=== PATIENT | female | born 1950 | race Caucasian/White ===

== ENCOUNTER 2019-11-21 18:00 | Inpatient (IN) ==
[2019-11-21] MEDS ORDERED: Naloxone 0.4 MG/ML INJ IVP PRN (22:25)
[2019-11-21] MEDS: Azithromycin 250 MG TABLET PO SCH (23:28)
[2019-11-22] MEDS: Ipratropium/Albuterol Neb 3 ML IH SCH ×6 (00:48→20:04)
[2019-11-22 01:04] LABS: Bilirubin,Urine Negative (Negative); Blood,Urine Trace (Negative); Clarity,Urine Clear (Clear); Color,Urine Yellow (Yellow); Glucose,Urine (UA) Normal (Normal); Ketones,Urine Negative (Negative); Leukocyte Esterase,Urine Negative (Negative); Nitrite,Urine Negative (Negative); Protein,Urine Trace mg/dL (Neg-Trace); Urobilinogen,Urine Normal (Normal)
[2019-11-22 01:07] LABS: Bacteria,Urine None Seen per hpf (None-Few); Hyaline Casts,Urine None Seen per lpf (None-Few); RBC,Urine 0-3 per hpf (0-3); Squamous Epithelial Cell,Urine Few per lpf (None-Few); WBC,Urine 0-3 per hpf (0-3)
[2019-11-22 01:14] LABS: Amphetamine Screen,Urine Negative ng/mL (Cutoff=1000); Barbiturate Screen,Urine Negative ng/mL (Cutoff=200); Benzodiazepines Screen,Urine Negative ng/mL (Cutoff=200); Cannabinoid Screen,Urine Negative ng/mL (Cutoff = 50); Cocaine Screen,Urine Negative ng/mL (Cutoff= 300); Opiate Screen,Urine Negative ng/mL (Cutoff=300); Phencyclidine Screen,Urine Negative ng/mL (Cutoff=25)
[2019-11-22 01:27] LABS: Albumin/Globulin Ratio 1.7 (1.1-2.2); Bilirubin,Total 0.4 mg/dL (0.3-1.0); Calcium 8.5 mg/dL (8.6-10.3); Chol/HDL Ratio 4.2 (0-4.9); Globulin 2.4 g/dL (2.4-3.5); Potassium 4.5 mEq/L (3.5-5.1); Total Protein 6.4 g/dL (6.4-8.9)
[2019-11-22 01:51] LABS: Thyroid Stimulating Hormone 0.403 mcIU/mL (0.340-5.600)
[2019-11-22] MEDS: *HR* Heparin 5,000 UNIT/ML VIAL SQ SCH ×2 (06:05→17:17)
[2019-11-22] MEDS: ARNUITY ELLIPTA AER SCH (07:25)
[2019-11-22 08:05] LABS: Estimated Average Glucose 117 mg/dl
[2019-11-22] MEDS ORDERED: Aspirin Enteric Coated 81 MG Tablet PO SCH (09:00)
[2019-11-22] MEDS ORDERED: Famotidine 20 MG TABLET PO SCH (09:00)
[2019-11-22] MEDS: predniSONE 20 MG TABLET PO SCH (10:52)
[2019-11-22] MEDS: Cholecalciferol (D-3) 1,000 UNIT (25MCG) TABLET PO SCH (10:52)
[2019-11-22] MEDS: *HR* HYDROcodone/Acet 5/325 mg TABLET PO PRN ×2 (12:16→20:46)
[2019-11-22] MEDS: Famotidine 20 MG TABLET PO SCH (15:32)
[2019-11-22] MEDS: Azithromycin 250 MG TABLET PO SCH (22:05)
[2019-11-22] MEDS: carvediloL 6.25 MG TABLET PO SCH (22:05)
[2019-11-23] MEDS: Ipratropium/Albuterol Neb 3 ML IH SCH ×7 (03:27→23:57)
[2019-11-23] MEDS: *HR* Heparin 5,000 UNIT/ML VIAL SQ SCH ×2 (05:44→17:04)
[2019-11-23 06:49] LABS: Hematocrit 34.8 % (35.3-44.9); Hemoglobin 11.9 g/dL (11.5-15.4); Mean Corpuscular HGB Conc 34.2 g/dL (31.6-35.5); Mean Corpuscular Hemoglobin 30.7 pg (28.0-33.3); Mean Corpuscular Volume 89.7 fL (83.0-100.0); Mean Platelet Volume 11.4 fL (9.4-12.4); Platelet Count 207 K/mcL (140-400); Red Blood Count 3.88 M/mcL (3.82-4.97); Red Cell Distribution Width 12.8 % (11.5-14.5); White Blood Count 5.8 K/mcL (4.3-11.1)
[2019-11-23 07:08] LABS: Calcium 8.1 mg/dL (8.6-10.3); Potassium 4.2 mEq/L (3.5-5.1)
[2019-11-23] MEDS: ARNUITY ELLIPTA AER SCH (07:49)
[2019-11-23] MEDS: carvediloL 6.25 MG TABLET PO SCH ×2 (08:52→17:04)
[2019-11-23] MEDS: Lisinopril 20 MG TABLET PO SCH (08:52)
[2019-11-23] MEDS: predniSONE 20 MG TABLET PO SCH (08:52)
[2019-11-23] MEDS: Famotidine 20 MG TABLET PO SCH (08:52)
[2019-11-23] MEDS: Cholecalciferol (D-3) 1,000 UNIT (25MCG) TABLET PO SCH (08:52)
[2019-11-23] MEDS: *HR* HYDROcodone/Acet 5/325 mg TABLET PO PRN (15:27)
[2019-11-23] MEDS: Azithromycin 250 MG TABLET PO SCH (23:12)
[2019-11-24] MEDS: Ipratropium/Albuterol Neb 3 ML IH SCH ×4 (03:24→15:32)
[2019-11-24 04:23] LABS: Hematocrit 33.2 % (35.3-44.9); Hemoglobin 10.9 g/dL (11.5-15.4); Mean Corpuscular HGB Conc 32.8 g/dL (31.6-35.5); Mean Corpuscular Hemoglobin 30.2 pg (28.0-33.3); Mean Platelet Volume 10.3 fL (9.4-12.4); Platelet Count 260 K/mcL (140-400); Red Blood Count 3.61 M/mcL (3.82-4.97); Red Cell Distribution Width 12.6 % (11.5-14.5); White Blood Count 7.3 K/mcL (4.3-11.1)
[2019-11-24 04:47] LABS: Calcium 8.2 mg/dL (8.6-10.3); Potassium 4.3 mEq/L (3.5-5.1)
[2019-11-24] MEDS: *HR* Heparin 5,000 UNIT/ML VIAL SQ SCH ×2 (05:38→16:13)
[2019-11-24] MEDS: *HR* HYDROcodone/Acet 5/325 mg TABLET PO PRN (06:45)
[2019-11-24] MEDS: ARNUITY ELLIPTA AER SCH (07:23)
[2019-11-24 08:42] LABS: ANA IgG by ELISA NONE DETECTED (None Detected)
[2019-11-24] MEDS: predniSONE 20 MG TABLET PO SCH (09:30)
[2019-11-24] MEDS: Famotidine 20 MG TABLET PO SCH (09:30)
[2019-11-24] MEDS: Lisinopril 20 MG TABLET PO SCH (09:31)
[2019-11-24] MEDS: Cholecalciferol (D-3) 1,000 UNIT (25MCG) TABLET PO SCH (09:31)
[2019-11-24] MEDS: carvediloL 6.25 MG TABLET PO SCH ×2 (09:31→16:27)
[2019-11-24 15:21] VITALS: BP 165/83
== END 2019-11-24 19:07 | disposition home or self-care (01) | DRG 552 ==
LOC: 3BNU → SUATTDRO 21:18
PROVIDERS: ADMIT Pharmacist; ATTEND Internal Medicine

== ENCOUNTER 2019-12-04 03:02 | Inpatient (IN) ==
[2019-12-04] MEDS ORDERED: 0.9 % Sodium Chloride 1,000 ML IV ONE (05:54)
[2019-12-04] MEDS ORDERED: Naloxone 0.4 MG/ML INJ IVP PRN (07:00)
[2019-12-04] MEDS ORDERED: Ondansetron 4 MG/2 ML VIAL IVP PRN (07:00)
[2019-12-04] MEDS: Ringers Solution, Lactated 1,000 ML IVC SCH ×2 (09:22→14:28)
[2019-12-04] MEDS: predniSONE 20 MG TABLET PO SCH (09:22)
[2019-12-04 10:45] LABS: Basophils % 0.2 %; Eosinophils # 0.1 K/mcL (0.0-0.6); Eosinophils % 0.4 %; Hematocrit 33.8 % (35.3-44.9); Immature Granulocytes % 0.5 % (0-4); Lymphocytes # 1.4 K/mcL (0.6-4.6); Lymphocytes % 11.8 %; Mean Corpuscular HGB Conc 32.5 g/dL (31.6-35.5); Mean Corpuscular Hemoglobin 30.6 pg (28.0-33.3); Mean Corpuscular Volume 93.9 fL (83.0-100.0); Mean Platelet Volume 11.1 fL (9.4-12.4); Monocytes # 0.9 K/mcL (0.0-1.3); Monocytes % 7.9 %; Neutrophils # 9.3 K/mcL (1.6-8.9); Platelet Count 213 K/mcL (140-400); Red Cell Distribution Width 13.9 % (11.5-14.5); Segmented Neutrophils % 79.2 %; White Blood Count 11.7 K/mcL (4.3-11.1)
[2019-12-04 11:18] LABS: Albumin 3.1 g/dL (3.5-5.7); Albumin/Globulin Ratio 1.6 (1.1-2.2); Bilirubin,Total 1.1 mg/dL (0.3-1.0); Calcium 6.8 mg/dL (8.6-10.3); Globulin 1.9 g/dL (2.4-3.5); Magnesium 1.6 mg/dL (1.6-2.6)
[2019-12-04] MEDS ORDERED: *HR* Dextrose 50 % in Water (Syg) 50 ML SYRINGE IVP PRN (11:25)
[2019-12-04] MEDS ORDERED: D5% in Water 1,000 ML IVC PRN (11:25)
[2019-12-04] MEDS: D5% in Lactated Ringers 1,000 ML IVC SCH (11:46)
[2019-12-04] MEDS: *HR* Heparin 5,000 UNIT/ML VIAL SQ SCH ×2 (14:28→21:54)
[2019-12-05] MEDS: D5% in Lactated Ringers 1,000 ML IVC SCH ×3 (00:36→20:24)
[2019-12-05] MEDS: *HR* Heparin 5,000 UNIT/ML VIAL SQ SCH ×3 (06:01→20:29)
[2019-12-05 06:24] LABS: Basophils % 0.1 %; Eosinophils % 0.2 %; Hematocrit 33.5 % (35.3-44.9); Immature Granulocytes % 0.5 % (0-4); Lymphocytes # 1.3 K/mcL (0.6-4.6); Lymphocytes % 8.5 %; Mean Corpuscular HGB Conc 32.8 g/dL (31.6-35.5); Mean Corpuscular Hemoglobin 30.6 pg (28.0-33.3); Mean Corpuscular Volume 93.3 fL (83.0-100.0); Mean Platelet Volume 10.6 fL (9.4-12.4); Monocytes # 1.5 K/mcL (0.0-1.3); Neutrophils # 11.9 K/mcL (1.6-8.9); Platelet Count 198 K/mcL (140-400); Red Blood Count 3.59 M/mcL (3.82-4.97); Red Cell Distribution Width 13.8 % (11.5-14.5); Segmented Neutrophils % 80.7 %; White Blood Count 14.8 K/mcL (4.3-11.1)
[2019-12-05 06:44] LABS: Albumin 3.2 g/dL (3.5-5.7); Albumin/Globulin Ratio 1.5 (1.1-2.2); Bilirubin,Direct 0.3 mg/dL (0.0-0.2); Bilirubin,Indirect 0.7 mg/dL (0.0-1.0); Calcium 7.4 mg/dL (8.6-10.3); Globulin 2.1 g/dL (2.4-3.5); Potassium 3.9 mEq/L (3.5-5.1); Total Protein 5.3 g/dL (6.4-8.9)
[2019-12-05] MEDS ORDERED: Furosemide 20 MG TABLET PO PRN (07:56)
[2019-12-05] MEDS ORDERED: Famotidine 20 MG TABLET PO PRN ×2 (07:56→14:51)
[2019-12-05] MEDS ORDERED: Fluticasone Propionate Nasal 50 MCG/SPRAY BOTTLE NS PRN (07:56)
[2019-12-05] MEDS ORDERED: Albuterol 2.5 MG/3 ML NEBULIZER IH PRN (07:56)
[2019-12-05] MEDS: calcitrioL 0.25 MCG CAPSULE PO SCH (08:37)
[2019-12-05] MEDS: Ringers Solution, Lactated 1,000 ML IVC SCH ×2 (08:37→08:38)
[2019-12-05] MEDS: predniSONE 20 MG TABLET PO SCH (08:37)
[2019-12-05] MEDS: lisinopriL 20 MG TABLET PO SCH (08:37)
[2019-12-05] MEDS: carvediloL 6.25 MG TABLET PO SCH ×2 (08:37→18:13)
[2019-12-06] MEDS: D5% in Lactated Ringers 1,000 ML IVC SCH ×3 (04:32→21:02)
[2019-12-06] MEDS: *HR* Heparin 5,000 UNIT/ML VIAL SQ SCH ×3 (05:37→21:12)
[2019-12-06 07:43] LABS: Basophils % 0.2 %; Eosinophils # 0.1 K/mcL (0.0-0.6); Eosinophils % 0.7 %; Hematocrit 32.3 % (35.3-44.9); Hemoglobin 10.3 g/dL (11.5-15.4); Immature Granulocytes % 0.6 % (0-4); Lymphocytes # 1.2 K/mcL (0.6-4.6); Lymphocytes % 9.9 %; Mean Corpuscular HGB Conc 31.9 g/dL (31.6-35.5); Mean Corpuscular Hemoglobin 30.1 pg (28.0-33.3); Mean Corpuscular Volume 94.4 fL (83.0-100.0); Mean Platelet Volume 10.5 fL (9.4-12.4); Monocytes % 8.2 %; Neutrophils # 9.9 K/mcL (1.6-8.9); Platelet Count 168 K/mcL (140-400); Red Blood Count 3.42 M/mcL (3.82-4.97); Red Cell Distribution Width 13.4 % (11.5-14.5); Segmented Neutrophils % 80.4 %; White Blood Count 12.4 K/mcL (4.3-11.1)
[2019-12-06 08:02] LABS: Albumin/Globulin Ratio 1.4 (1.1-2.2); Bilirubin,Total 0.8 mg/dL (0.3-1.0); Calcium 7.6 mg/dL (8.6-10.3); Globulin 2.2 g/dL (2.4-3.5); Potassium 3.7 mEq/L (3.5-5.1); Total Protein 5.2 g/dL (6.4-8.9)
[2019-12-06] MEDS ORDERED: MetroNIDAZOLE 500 MG/100 ML 500 MG/100 ML BAG IVPB SCH (08:42)
[2019-12-06] MEDS ORDERED: cefTRIAXone 1,000 MG in 0.9 % Sodium Chloride Mini Bag 100 ML IVPB SCH (09:00)
[2019-12-06] MEDS: predniSONE 20 MG TABLET PO SCH (09:33)
[2019-12-06] MEDS: calcitrioL 0.25 MCG CAPSULE PO SCH (09:33)
[2019-12-06] MEDS: lisinopriL 20 MG TABLET PO SCH (09:33)
[2019-12-06] MEDS: carvediloL 6.25 MG TABLET PO SCH ×2 (09:33→21:04)
[2019-12-06] MEDS: Ringers Solution, Lactated 1,000 ML IVC SCH (09:36)
[2019-12-06] MEDS: cefTRIAXone 1,000 MG in Water for inj. (sterile) 10 ML IVP SCH (09:36)
[2019-12-06] MEDS ORDERED: GI Cocktail 40 ML EACH PO ONE (12:41)
[2019-12-06] MEDS ORDERED: Pantoprazole 40 MG VIAL IVP SCH (15:30)
[2019-12-06] MEDS: MetroNIDAZOLE 500 MG/100 ML 500 MG/100 ML BAG IVPB SCH (21:05)
[2019-12-06] MEDS: Pantoprazole 40 MG VIAL IVP SCH (21:08)
[2019-12-07 03:36] LABS: Basophils % 0.1 %; Eosinophils % 0.3 %; Hematocrit 31.7 % (35.3-44.9); Hemoglobin 10.5 g/dL (11.5-15.4); Immature Granulocytes % 0.5 % (0-4); Lymphocytes # 0.9 K/mcL (0.6-4.6); Lymphocytes % 10.6 %; Mean Corpuscular HGB Conc 33.1 g/dL (31.6-35.5); Mean Corpuscular Hemoglobin 31.1 pg (28.0-33.3); Mean Corpuscular Volume 93.8 fL (83.0-100.0); Mean Platelet Volume 10.6 fL (9.4-12.4); Monocytes # 0.5 K/mcL (0.0-1.3); Monocytes % 5.8 %; Neutrophils # 7.2 K/mcL (1.6-8.9); Platelet Count 174 K/mcL (140-400); Red Blood Count 3.38 M/mcL (3.82-4.97); Red Cell Distribution Width 13.3 % (11.5-14.5); Segmented Neutrophils % 82.7 %; White Blood Count 8.7 K/mcL (4.3-11.1)
[2019-12-07 03:53] LABS: Albumin/Globulin Ratio 1.3 (1.1-2.2); Bilirubin,Total 0.7 mg/dL (0.3-1.0); Calcium 7.9 mg/dL (8.6-10.3); Globulin 2.3 g/dL (2.4-3.5); Potassium 4.2 mEq/L (3.5-5.1); Total Protein 5.3 g/dL (6.4-8.9)
[2019-12-07] MEDS: MetroNIDAZOLE 500 MG/100 ML 500 MG/100 ML BAG IVPB SCH ×3 (04:34→19:41)
[2019-12-07] MEDS: *HR* Heparin 5,000 UNIT/ML VIAL SQ SCH ×3 (05:22→21:47)
[2019-12-07] MEDS: cefTRIAXone 1,000 MG in Water for inj. (sterile) 10 ML IVP SCH (09:34)
[2019-12-07] MEDS: Pantoprazole 40 MG VIAL IVP SCH (09:34)
[2019-12-07] MEDS: calcitrioL 0.25 MCG CAPSULE PO SCH (09:35)
[2019-12-07] MEDS: predniSONE 20 MG TABLET PO SCH (09:35)
[2019-12-07] MEDS: lisinopriL 20 MG TABLET PO SCH (09:35)
[2019-12-07] MEDS: carvediloL 6.25 MG TABLET PO SCH ×2 (09:36→16:38)
[2019-12-07] MEDS: D5% in Lactated Ringers 1,000 ML IVC SCH (13:53)
[2019-12-08] MEDS: D5% in Lactated Ringers 1,000 ML IVC SCH (02:32)
[2019-12-08] MEDS: MetroNIDAZOLE 500 MG/100 ML 500 MG/100 ML BAG IVPB SCH ×2 (04:09→12:31)
[2019-12-08] MEDS: *HR* Heparin 5,000 UNIT/ML VIAL SQ SCH ×3 (04:38→22:10)
[2019-12-08 04:55] LABS: Basophils % 0.1 %; Eosinophils % 0.4 %; Hematocrit 33.5 % (35.3-44.9); Hemoglobin 10.8 g/dL (11.5-15.4); Immature Granulocytes % 0.3 % (0-4); Lymphocytes # 0.9 K/mcL (0.6-4.6); Lymphocytes % 13.4 %; Mean Corpuscular HGB Conc 32.2 g/dL (31.6-35.5); Mean Corpuscular Hemoglobin 30.5 pg (28.0-33.3); Mean Corpuscular Volume 94.6 fL (83.0-100.0); Mean Platelet Volume 10.9 fL (9.4-12.4); Monocytes # 0.5 K/mcL (0.0-1.3); Monocytes % 6.7 %; Neutrophils # 5.5 K/mcL (1.6-8.9); Platelet Count 196 K/mcL (140-400); Red Blood Count 3.54 M/mcL (3.82-4.97); Red Cell Distribution Width 13.3 % (11.5-14.5); Segmented Neutrophils % 79.1 %; White Blood Count 6.9 K/mcL (4.3-11.1)
[2019-12-08 05:40] LABS: Calcium 8.2 mg/dL (8.6-10.3); Potassium 3.8 mEq/L (3.5-5.1)
[2019-12-08] MEDS ORDERED: Regadenoson 0.4 MG/5 ML SYRINGE IVP ONE ×2 (07:51→08:12)
[2019-12-08] MEDS: Pantoprazole 40 MG VIAL IVP SCH (10:01)
[2019-12-08] MEDS: cefTRIAXone 1,000 MG in Water for inj. (sterile) 10 ML IVP SCH (10:01)
[2019-12-08] MEDS: predniSONE 20 MG TABLET PO SCH (10:02)
[2019-12-08] MEDS: lisinopriL 20 MG TABLET PO SCH (10:02)
[2019-12-08] MEDS: calcitrioL 0.25 MCG CAPSULE PO SCH (10:02)
[2019-12-08] MEDS: carvediloL 6.25 MG TABLET PO SCH (10:02)
[2019-12-08] MEDS ORDERED: ceFAZolin 1,000 MG in Water for inj. (sterile) 10 ML IVP ONE (16:26)
[2019-12-08] MEDS ORDERED: *HR* Propofol 200 MG/20 ML VIAL IVP ONE (17:16)
[2019-12-08] MEDS ORDERED: *HR* Midazolam HCl 2 MG/2 ML VIAL ONE (17:16)
[2019-12-08] MEDS ORDERED: *HR* FentaNYL (PF) 100 MCG/2 ML VIAL ONE ×2 (17:16→18:21)
[2019-12-08] MEDS ORDERED: Ondansetron 4 MG/2 ML VIAL ONE (17:18)
[2019-12-08] MEDS ORDERED: Lidocaine -MPF 2% 2 ML VIAL ONE (17:18)
[2019-12-08] MEDS ORDERED: Dexamethasone 4 MG/ML VIAL ONE (17:18)
[2019-12-08] MEDS ORDERED: *HR* Succinylcholine 200 MG/10 ML VIAL IVP ONE (17:22)
[2019-12-08] MEDS ORDERED: Lidocaine -MPF 4% 5 ML AMPUL ONE (17:23)
[2019-12-08] MEDS ORDERED: *HR* Labetalol 20 MG/4 ML SYRINGE IVP ONE (18:26)
[2019-12-08] MEDS ORDERED: Ringers Solution, Lactated 1,000 ML ONE (19:40)
[2019-12-08] MEDS: *HR* HYDROmorphone (PF) 1 MG/ML SYRINGE IVP PRN ×2 (19:58→20:10)
[2019-12-08] MEDS ORDERED: Albuterol 2.5 MG/3 ML NEBULIZER IH PRN (20:44)
[2019-12-08] MEDS ORDERED: Famotidine 20 MG TABLET PO PRN (20:44)
[2019-12-08] MEDS ORDERED: *HR* Dextrose 50 % in Water (Syg) 50 ML SYRINGE IVP PRN (20:44)
[2019-12-08] MEDS ORDERED: Fluticasone Propionate Nasal 50 MCG/SPRAY BOTTLE NS PRN (20:44)
[2019-12-08] MEDS ORDERED: D5% in Water 1,000 ML IVC PRN (20:44)
[2019-12-08] MEDS ORDERED: D5% in Lactated Ringers 1,000 ML IVC SCH (20:44)
[2019-12-08] MEDS ORDERED: Naloxone 0.4 MG/ML INJ IVP PRN (20:44)
[2019-12-08] MEDS ORDERED: Ondansetron 4 MG/2 ML VIAL IVP PRN (20:44)
[2019-12-08] MEDS ORDERED: Furosemide 20 MG TABLET PO PRN (20:44)
[2019-12-09] MEDS: MetroNIDAZOLE 500 MG/100 ML 500 MG/100 ML BAG IVPB SCH ×2 (03:16→12:49)
[2019-12-09 03:38] LABS: Basophils % 0.1 %; Hematocrit 32.9 % (35.3-44.9); Hemoglobin 10.7 g/dL (11.5-15.4); Immature Granulocytes % 0.7 % (0-4); Lymphocytes # 0.6 K/mcL (0.6-4.6); Lymphocytes % 6.6 %; Mean Corpuscular HGB Conc 32.5 g/dL (31.6-35.5); Mean Corpuscular Hemoglobin 30.6 pg (28.0-33.3); Mean Platelet Volume 10.1 fL (9.4-12.4); Monocytes # 0.5 K/mcL (0.0-1.3); Monocytes % 5.3 %; Neutrophils # 7.4 K/mcL (1.6-8.9); Platelet Count 205 K/mcL (140-400); Red Cell Distribution Width 13.6 % (11.5-14.5); Segmented Neutrophils % 87.3 %; White Blood Count 8.5 K/mcL (4.3-11.1)
[2019-12-09 03:49] LABS: Calcium 7.6 mg/dL (8.6-10.3); Potassium 4.4 mEq/L (3.5-5.1)
[2019-12-09] MEDS: *HR* Heparin 5,000 UNIT/ML VIAL SQ SCH (05:17)
[2019-12-09 06:51] VITALS: BP 145/79
[2019-12-09] MEDS ORDERED: carvediloL 6.25 MG TABLET PO SCH (08:00)
[2019-12-09] MEDS ORDERED: predniSONE 20 MG TABLET PO SCH (09:00)
[2019-12-09] MEDS ORDERED: Pantoprazole 40 MG VIAL IVP SCH (09:00)
[2019-12-09] MEDS ORDERED: lisinopriL 20 MG TABLET PO SCH (09:00)
[2019-12-09] MEDS ORDERED: calcitrioL 0.25 MCG CAPSULE PO SCH (09:00)
[2019-12-09] MEDS ORDERED: cefTRIAXone 1,000 MG in Water for inj. (sterile) 10 ML IVP SCH (09:00)
== END 2019-12-09 15:37 | disposition home or self-care (01) | DRG 418 ==
LOC: CDU → SUATTDRO 11:20 → 3ANU 15:30
PROVIDERS: ADMIT Student in an Organized Health Care Education/Training Program; ATTEND Family Medicine